=== PATIENT | male | born 1960 | race Caucasian/White ===

== ENCOUNTER 2017-10-01 19:10 | Emergency (ER) | payer OTHER ==
[~2017-10-01] VITALS: Ht 177.8 cm; Wt 83.9 kg
[2017-10-01 19:17] VITALS: Ht 177.8 cm; Wt 83.9 kg
[2017-10-01 20:57] LABS: BASOPHIL % 0.6 % (0-2)
[2017-10-01 20:59] LABS: PLATELET COUNT 81 x10^3mcL (130-400)
[2017-10-01 21:11] LABS: CALCIUM 8.7 mg/dL (8.5-10.1); CARBON DIOXIDE 27.9 mmol/L (21-32); CHLORIDE SERUM 106 mmol/L (98-107); CREATININE SERUM 0.9 mg/dL (0.7-1.3); GFR1 > 60 mL/min; GLUCOSE SERUM 93 mg/dL (74-106); SODIUM SERUM 142 mmol/L (136-145)
[2017-10-02 00:27] VITALS: BP 138/78
== END 2017-10-02 00:27 | disposition home or self-care (01) ==
LOC: ED 19:10
PROVIDERS: Emergency Medicine
DX: S39.012A Strain of muscle, fascia and tendon of lower back, initial encounter (principal); W11.XXXA Fall on and from ladder, initial encounter; Y93.89 Activity, other specified; Y92.89 Other specified places as the place of occurrence of the external cause; Y99.8 Other external cause status
CPT/HCPCS: J2405; J3010; J7030; Q9967